=== PATIENT | female | born 1985 | race Caucasian/White ===

== ENCOUNTER → 2018-08-14 | Outpatient (CLI) | payer OTHER, SELFPAY ==
[2018-03-21 16:43] VITALS: BMI 20.6
[2018-08-14 08:52] LABS: Absolute Lymphocyte Count 1.14 X10^3/ul (0.83-4.51); Absolute Neutrophil Count 1.4 X10^3/uL (2.0-7.7); Basophil# 0.03 X10^3/uL; Eosinophils% 3.4 % (0-5); Hematocrit 34.8 % (37-47); Hemoglobin 11.6 g/dl (12.0-15.0); Lymphocyte # 1.14 X10^3/ul (4.0); Lymphocyte % 39.2 % (19-41); Mean Corp Hgb Conc 33.3 g/gl (32-36); Mean Corpuscular Hgb 32.9 pg (27.0-32.0); Mean Corpuscular Volume 98.6 fL (81-99); Mean Platelet Vol. 10.3 fl (6.2-12.0); Monocyte# 0.25 X10^3/uL; Monocyte% 8.6 % (0-10); Neutrophil # 1.39 X10^3/uL (2.7-7.7); Neutrophil % 47.8 % (47-70); POSITIVE COUNT NO; POSITIVE DIFFERENTIAL NO; POSITIVE MORPHOLOGY NO; Platelet Count 337 K/mm3 (150-450); RBC Distribution Width CV 12.4 % (11.6-14.6); RBC Distribution Width SD 44.4 fl (35.1-43.9); Red Blood Count 3.53 M/mm3 (4.2-5.4); White Blood Count 2.9 K/mm3 (4.4-11.0)
[2018-08-14 09:08] LABS: Erythrocyte Sedimentation Rate 3 mm/hr (0-20)
[2018-08-14 09:14] LABS: International Normalized Ratio 1.1; Prothrombin Time (Protime)PT. 13.5 SECONDS (11.7-14.9)
[2018-08-14 09:15] LABS: Vitamin B12 449 pg/mL (211-911); Vitamin D,25 Hydroxy 10.8 ng/mL (29.95-100.01)
[2018-08-14 09:20] LABS: Partial Thromboplast Time 27.8 Seconds (24.1-36.2)
[2018-08-14 09:22] LABS: ALB/GLOB Ratio 1.2 RATIO (0.9-2.4); AST(SGOT) 13 U/L (15-37); Alanine Aminotransfer ALT/SGPT 23 U/L (13-56); Albumin, Serum 4.2 g/dL (3.2-5.0); Alkaline Phosphatase 66 U/L (45-117); Anion Gap 6 (5-15); BUN 14 mg/dL (7-18); BUN/Creat Ratio 14.8 RATIO (10-20); CPK Total, Creatine Kinase 82 U/L (26-192); Calcium,Total 8.9 mg/dL (8.5-10.1); Chloride 107 mmol/L (98-107); Creatinine, Serum 0.95 mg/dL (0.55-1.02); EST Glomerular Filtration Rate 73 mL/min (>60); Est Glom Filt Rate - Afr Amer 88 mL/min (>60); Ferritin 6 ng/mL (8-252); Globulin 3.5 g/dL (2.2-4.2); Glucose 76 mg/dL (74-106); Iron 51 ug/dL (50-170); Iron Binding Capacity,Total 367 ug/dL (250-450); Potassium 3.6 mmol/L (3.5-5.1); Protein, Total 7.7 g/dL (6.4-8.2); Rheumatoid Factor < 10.0 IU/mL (<15); Sodium Level 141 mmol/L (136-145); T4 Free Direct 1.14 ng/dL (0.76-1.46); Thyroid Stim Hormone (TSH) 2.93 uIU/mL (0.358-3.74)
[2018-08-16 12:47] LABS: ANTINUCLEAR ANTIBODIES DIRECT Negative (Negative)
== END | disposition home or self-care (01) ==
LOC: LAB 08:01
DX: M91.0 Juvenile osteochondrosis of pelvis (principal); M25.50 Pain in unspecified joint; R23.8 Other skin changes; R21 Rash and other nonspecific skin eruption; M62.81 Muscle weakness (generalized)
CPT/HCPCS: 36415; 80053; 82306; 82550; 82607; 82728; 83540; 83550; 84439; 84443; 85025; 85610; 85652; 85730; 86038; 86225; 86235; 86431

== ENCOUNTER → 2018-10-08 | Outpatient (CLI) | payer OTHER, SELFPAY ==
[2018-10-08 13:11] VITALS: BMI 20.6
--- NOTE | 2018-10-08 13:24 | RAD_ITS ---
STUDY: X-RAY - RIGHT ELBOW REASON FOR EXAM: Female, 33 years old. Follow-up injury TECHNIQUE: 3 view(s) of the elbow. COMPARISON: None. FINDINGS: Normal visualized humerus, radius and ulna. Normal radiocapitellar and ulnotrochlear articulations. There is a punctate well-corticated calcific density on the medial side of the medial epicondyle which may represent prior injury. The soft tissue structures are unremarkable. RAD/Elbow min 3 Views IMPRESSION: No evidence of an acute fracture. Subtle punctate calcification at the level of the medial epicondyle which may represent prior injury. No visualized joint effusion visualized acute fracture. Electronically Signed: Margaret Dumont MD at 14:16 EDT Tel , Service support ,
== END | disposition home or self-care (01) ==
LOC: HPRAD 13:23
PROVIDERS: Referring Provider Orthopaedic Surgery; Visit Provider Orthopaedic Surgery
DX: M25.521 Pain in right elbow (principal)
CPT/HCPCS: 73080

== ENCOUNTER 2019-01-02 07:15 | Outpatient (RCR) | payer OTHER, SELFPAY ==
[2018-10-08 13:11] VITALS: BMI 20.6
--- NOTE | 2018-10-22 12:52 | HP.OTEVAL ---
Patient's Visit Information CATHY BECERRIL is a 33 year old F, referred to Occupational Therapy by Dorina Duval DO, with a diagnosis of right elbow pain. Date of Evaluation: 10/21/18 Occupational Therapist: Casi Jon, NICKI/Albin, CHT - Subjective Subjective: This 33 year old female was seen for initial OT eval with dx of right elbow pain ulnar neve contusion. Pt right handed hx of ulnar nerve transposition in 2016. was doing fine when son ran into her elbow with his head october 05 2018. she had pain and numb/tingling since and when she rubs against something it causes pain. Triggers general elbow pain from the elbow up the tricep. Pt is feeling limited with her daily work tasks, more arm fatigue and caring for her twin boys. pt states she has started to use icey/hot and this does help decrease pain so she can sleep. order calls for desensitization and reduction of elbow pain - Pain right elbow 2 Pain Intensity Range: 0, 5 - Objective Objective/Observation: pt very tender over voalr foream distial to elbow crease. - ROM ROM Comments: pt demo full ROM for right UE - Strength Trucking Manager: elbow bent right 50# left 55 elbow straight right 40# left 55# Lateral Pinch: right 12# left 12# Tripod Pinch: right 12# left 15# Strength Comments: painful with straight elbow - Sensation Sensation Comments: with bumping her inner elbow she gets tingling/down to her fingers - Quick DASH-Disab of Arm,Shoulder& Hand Quick DASH Score: 23.3325 - Goals Goal:: pt will report no pain greater than 1/10 with use of right UE with ADLs and IADLs by D/C. pt will not report pain with palpation at tricep/medial or lateral aspects of elbow by d/c Goal:: pt will demo the ability to tolerate touch to her right forearm to be able to interact/play and care for her twin toddlers. - Rehabilitation General Assessment: pt demo with hypersensitive ulnar nerve distribution to volar forearm. pt demo with paiful compensation vice president strength and fatigue with use that limits her ind. with ADLs and IADLS. pt would benefit from skilled OT services 2x week for 4 weeks to return pt to [facility]. Today pt was ed. on ulnar nuerve glide, ice and a elbow pad was provided to decrease her from hitting her elbow. pt demo understanding and agree to POC. Rehabilitation Potential: Good - Anticipated Interventions Anticipated Interventions: Desensitization, Modalities, Orthoses, Joint Protection/Energy Conservation, Ergonomic Education, Home Program - Visit Plan Frequency: 1-2x /Week Duration: 4 Weeks TEXT: Thank you for the opportunity to evaluate your patient. For Medicare and Medicare HMO plans, please review the plan of care and approve it. It will need to be FAXED BACK to us at [phone] for Medicare purposes. Please let me know if there are questions or concerns regarding this plan of care. Physician Signature: Date:
--- NOTE | 2019-03-05 19:11 | HP.OTDCSUM ---
HP - OT D/C Summary It has been my pleasure to treat CATHY BECERRIL under orders from Dorina Duval DO, for the diagnosis of right elbow pain for a total of 13 visit(s). Please see the following information for a summary of their discharge status. - Overall Improvement % Improvement: 40 - Objective Objective/Function: pt will need to return to to further eval - Goals Patient Goals: Regain Mobility, Regain Strength, Decrease Pain, Improve Fine Motor Skills, Use Hand/Wrist/Arm Normally Again, Decrease Tingling/Numbness Goal:: pt will report no pain greater than 1/10 with use of right UE with ADLs and IADLs by D/C. pt will not report pain with palpation at tricep/medial or lateral aspects of elbow by d/c Goal:: pt will demo the ability to tolerate touch to her right forearm to be able to interact/play and care for her twin toddlers. - Plan Plan: cont POC - D/C Information If there are questions or concerns regarding this patient's occupational therapy, please fell free to call me at [phone]. Thank you for the referral of this patient. Sincerely, Casi Jon, OTR/L, CHT
== END 2019-01-02 19:00 | disposition home or self-care (01) ==
LOC: OT 07:15
PROVIDERS: Referring Provider Orthopaedic Surgery; Visit Provider Orthopaedic Surgery
DX: M25.521 Pain in right elbow (principal); M79.2 Neuralgia and neuritis, unspecified
CPT/HCPCS: 97033; 97035; 97110; 97140; 97166; 97530

== ENCOUNTER → 2019-03-26 06:32 | Outpatient (CLI) | payer OTHER, SELFPAY ==
[2019-03-11 13:42] VITALS: BMI 20.6
--- NOTE | 2019-03-26 06:33 | MRI_ITS ---
STUDY: MRI LEFT ELBOW REASON FOR EXAM: Left elbow pain, lateral epicondylitis. TECHNIQUE: Standardized fat and water weighted pulse sequences were obtained in all 3 orthogonal planes. COMPARISON: Radiographs 04/06/2016. FINDINGS: Normal radio-capitellum articulation. Normal radial collateral ligamentous complex. Normal common extensor tendon. Normal ulnotrochlear articulation. Normal ulnar collateral ligamentous complex. Normal common flexor tendon. The cubital tunnel is normal, with a normal ulnar nerve. Normal biceps tendon and distal insertion. Normal lacertus fibrosis. Normal brachialis musculotendinous insertion. Normal triceps tendon and teno-osseous insertion. Normal olecranon process. The visualized distal humerus, proximal radius, and ulna are normal. The visualized muscles of the distal arm and proximal forearm are normal. The soft tissue structures are unremarkable. MRI/Upper Ext Joint Only(Routine) IMPRESSION: Normal MRI of the left elbow without MRI manifestations of lateral epicondylitis. Electronically Signed: Merrick Taylor MD at 8:45 EST Tel , Service support ,
--- NOTE | 2019-03-26 06:33 | MRI_ITS ---
STUDY: MRI RIGHT ELBOW REASON FOR EXAM: Right elbow pain, impingement of right ulnar nerve, prior ulnar nerve transposition. TECHNIQUE: Standardized fat and water weighted pulse sequences were obtained in all 3 orthogonal planes. COMPARISON: Radiograph 10/08/2018 and MRI images 05/16/2016. FINDINGS: Normal radio-capitellum articulation. Normal radial collateral ligamentous complex. Normal common extensor tendon. Normal ulnotrochlear articulation. Normal ulnar collateral ligamentous complex. Normal common flexor tendon. Status post transposition of the ulnar nerve with mild enlargement of the ulnar nerve near the medial epicondyle (T2 axial images 13-15), portions of the ulnar nerve are obscured by postoperative micrometallic artifact. Normal biceps tendon and distal insertion. Normal lacertus fibrosis. Normal brachialis musculotendinous insertion. Normal triceps tendon and teno-osseous insertion. Normal olecranon process. There are anchors in the medial epicondyle. The visualized muscles of the distal arm and proximal forearm are normal. There is postoperative scarring at the posterior ulnar aspect of the elbow. MRI/Upper Ext Joint Only(Routine) IMPRESSION: Status post ulnar nerve transposition with mild enlargement of the ulnar nerve. Electronically Signed: Merrick Taylor MD at 8:46 EST Tel , Service support ,
== END ==
PROVIDERS: Family Provider Counselor Mental Health; PCP Counselor Mental Health; Referring Provider Orthopaedic Surgery; Visit Provider Orthopaedic Surgery
DX: M77.12 Lateral epicondylitis, left elbow (principal); G56.21 Lesion of ulnar nerve, right upper limb
CPT/HCPCS: 73221

== ENCOUNTER → 2019-03-27 14:59 | Outpatient (CLI) | payer OTHER, SELFPAY ==
[2019-03-27 08:17] VITALS: BMI 20.6
[2019-04-02 16:51] LABS: HPV APTIMA, High Risk Negative (Negative)
== END ==
PROVIDERS: Family Provider Counselor Mental Health; PCP Counselor Mental Health; Visit Provider Obstetrics & Gynecology
DX: Z12.4 Encounter for screening for malignant neoplasm of cervix (principal)
CPT/HCPCS: 87624; 88175; G0145

== ENCOUNTER 2019-05-22 13:59 | Outpatient (RCR) | payer OTHER, SELFPAY ==
[2019-05-15 08:21] VITALS: BMI 20.6
--- NOTE | 2019-05-23 08:19 | HP.OTEVAL_ITS ---
Patient's Visit Information CATHY BECERRIL is a 33 year old F, referred to Occupational Therapy by Dr. Dorina Duval DO, with a diagnosis of bilateral lat. epi.. Date of Evaluation: 05/22/19 Occupational Therapist: Casi Jon, OTR/Albin, CHT - Subjective Subjective: This 33 year old female was seen for OT with dx of lat. epi. Pt has been seen in the past by this therapist following a right medial epicondylectomy/debridement with subcutaneous ulnar nerve transpostion August 02, 2016. Today she states she had to return to due to bilateral elbow pain. Pt states she does hit her elbows at times on door arches, wall as she will stand and talk to people. She has changed her work station to increase better sitting position and work station. Pt states she has been seeing chiropractor for her neck pain and shoulders. Pt states she went to Dr. Leary last week of with increased elbow pain. Pt states arms hurt and feel weak when caring for her young twins. Twins are around 30-35#. Dressing them and caring them makes pain in arms/shoulder and neck worse. Pt States resting her arms with elbows bent she gets pain up triceps region. Pt states shooting pain up neck to base of skull. Pt would like to finger out is her neck/shoulders or elbows are the issue and decrease her pain. UB weakness. pain. MRI to bilateral elbows- cortisone shots to elbow did not help. tingling in LF and RF - Pain bilateral elbows 4 neck 7 Pain Intensity Range: 8 - Objective Objective/Observation: pt ambulates with guarded posture of UB/shoulder and neck. shoulders rolled forward and neck in forward flexion-with cues pt sitting with ridged body posture, due to pain in neck radiating down into scapula - ROM ROM Comments: pt demo ROM in BUE is WNL. Neck pain does not limit ROM of shoulder but pt reports painful motion. at rest shoulders hurt. - Strength Forearm: Right/left 4+/5 no pain with resistive testing Wrist: Right resistive wrist extension painful with testing 4-/5 left 4+/5 no pain [place]roudman: right 55# left 55# Lateral Pinch: right 12# left 10# Tripod Pinch: right 12# left 8# Strength Comments: right automat watcher strength October 2018 was 50# left 55#. straight arm automat watcher strength was 40# left 55#. Today straight arm automat watcher strength testing right 65# left 50# - Sensation Sensation Comments: tingling in LF of right hand - Quick DASH-Disab of Arm,Shoulder& Hand Quick DASH Score: 26.6650 - Goals Goal:: Pt will demo BUE ROM WNL with no pain greater than 1/10 throughout plans of motion by d/c Goal:: Pt will report pain no greater than 1/10 with use of affected hand with BADLs and IADLs by d/c. Goal:: pt will demo understanding of computer work station ergonomics, lifting ergonomics to decrease stress/injury on UE structures by dc - Rehabilitation General Assessment: Pt demo with good strength but pain is limiting factor. Pt can resist with MMT but has pain radiating neck and scapula with testing of shoulders/triceps/biceps. Pain at bilateral elbows. pt would benefit from sk illed therapy services 1-2x week for 4 weeks to decrease pain, educate on lift ergo., work ergo., perform isometric strengthening of upper tap/scapula and core to increase posture muscle endurance and strength to perform ADLs, work tasks at [facility]. Rehabilitation Potential: Good - Anticipated Interventions Anticipated Interventions: A/AAROM/PROM, Strengthening, Modalities, Joint Protection/Energy Conservation, Ergonomic Education, ADL Training, Home Program - Visit Plan Frequency: 1-2x /Week Duration: 4 Weeks TEXT: Thank you for the opportunity to evaluate your patient. For Medicare and Medicare HMO plans, please review the plan of care and approve it. It will need to be FAXED BACK to us at [phone] for Medicare purposes. Please let me know if there are questions or concerns regarding this plan of care. Physician Signature: Date:
== END 2019-05-22 19:00 | disposition home or self-care (01) ==
LOC: OT 13:59
PROVIDERS: PCP Counselor Mental Health; Referring Provider Orthopaedic Surgery; Visit Provider Orthopaedic Surgery
DX: M77.12 Lateral epicondylitis, left elbow (principal); M77.11 Lateral epicondylitis, right elbow
CPT/HCPCS: 97166

== ENCOUNTER → 2019-05-30 | Outpatient (CLI) | payer OTHER, SELFPAY ==
[2019-05-15 08:21] VITALS: BMI 20.6
--- NOTE | 2019-05-30 14:25 | RAD_ITS ---
STUDY: X-RAY - CERVICAL SPINE REASON FOR EXAM: Female, 33 years old. PAIN TECHNIQUE: 3 view(s) of the cervical spine were obtained. COMPARISON: None FINDINGS: Normal anterior atlantoaxial articulation. Normal odontoid process. Normal cervical lordosis. Normal vertebral bodies and endplates. Normal disc space heights. Normal visualized intervertebral neuroforamina. The soft tissue structures are unremarkable. RAD/Cerv Spine 2 or 3 Views IMPRESSION: Normal x-ray examination of the visualized cervical spine. Electronically Signed: Jeferson Silver MD at 23:39 EST , Service support ,
== END | disposition home or self-care (01) ==
LOC: RAD 14:21
PROVIDERS: PCP Counselor Mental Health; Referring Provider Chiropractor; Visit Provider Chiropractor
DX: M99.01 Segmental and somatic dysfunction of cervical region (principal)
CPT/HCPCS: 72040

== ENCOUNTER → 2019-09-22 06:35 | Outpatient (CLI) | payer OTHER, SELFPAY ==
[2019-06-16 15:14] VITALS: BMI 20.6
--- NOTE | 2019-09-22 06:48 | MRI_ITS ---
STUDY: MRI CERVICAL SPINE WITHOUT CONTRAST REASON FOR EXAM: Female, 33 years old. bilateral hand numbness X 11 MON TECHNIQUE: Standardized fat and water weighted pulse sequences were obtained in the sagittal and axial planes. COMPARISON: None FINDINGS: Normal foramen magnum and brainstem-cervical cord junction. Normal craniovertebral junction. Normal anterior atlantoaxial articulation. Normal odontoid process. Normal cervical lordosis. Normal vertebral bodies and posterior osseous elements. C2-3: Normal endplates. Normal disc height, signal and morphology. Normal central canal and intervertebral neural foramina. C3-4: Normal endplates. Normal disc height, signal and morphology. Normal central canal and intervertebral neural foramina. C4-5: Normal endplates. Normal disc height, signal and morphology. Normal central canal and intervertebral neural foramina. C5-6: Normal endplates. Normal disc height, signal and morphology. Normal central canal and intervertebral neural foramina. C6-7: Normal endplates. Normal disc height, signal and morphology. Normal central canal and intervertebral neural foramina. C7-T1: Normal endplates. Normal disc height, signal and morphology. Normal central canal and intervertebral neural foramina. Normal cervical cord. MRI/Spine Cervical (Routine) IMPRESSION: Normal unenhanced MR examination of the cervical spine. Electronically Signed: Rocky Benz MD at 8:16 EDT Tel , Service support ,
== END ==
PROVIDERS: PCP Counselor Mental Health; Referring Provider Psychiatry & Neurology Neurology; Visit Provider Psychiatry & Neurology Neurology
DX: G43.709 Chronic migraine without aura, not intractable, without status migrainosus (principal)
CPT/HCPCS: 72141

== ENCOUNTER → 2020-01-06 | Outpatient (CLI) | payer OTHER, SELFPAY ==
[2019-06-16 15:14] VITALS: BMI 20.6
[2020-01-06 14:15] LABS: Hemoglobin A1c 5.3 % (3.8-5.6)
== END | disposition home or self-care (01) ==
PROVIDERS: PCP Counselor Mental Health; Referring Provider Counselor Mental Health; Visit Provider Counselor Mental Health
DX: E16.2 Hypoglycemia, unspecified (principal)
CPT/HCPCS: 36415; 83036

== ENCOUNTER → 2020-04-01 | Outpatient (CLI) | payer OTHER, SELFPAY ==
[2020-04-01 08:19] VITALS: BMI 21.7
[2020-04-06 14:06] LABS: HPV APTIMA, High Risk Negative (Negative)
== END | disposition home or self-care (01) ==
PROVIDERS: PCP Counselor Mental Health; Referring Provider Obstetrics & Gynecology; Visit Provider Obstetrics & Gynecology
DX: Z12.4 Encounter for screening for malignant neoplasm of cervix (principal)
CPT/HCPCS: 87624; 88175; G0145

== ENCOUNTER 2020-09-01 15:00 | Outpatient (RCR) | payer OTHER, SELFPAY ==
[2020-08-12 15:11] VITALS: BMI 20.6
--- NOTE | 2020-08-27 07:26 | HP.OTEVAL_ITS ---
Patient's Visit Information CATHY BECERRIL is a 34 year old F, referred to Occupational Therapy by Dr. Dorina Duval DO, with a diagnosis of Bilateral MP thumb pain. Date of Evaluation: 08/27/20 Occupational Therapist: Casi Jon, SNEHAR/Albin, CHT - Subjective This 34 year old female was seen for OT eval with dx of bilateral MP pain of thumbs- pt states she has had cortisone shot and this did help- but still has pain with daily occupation. - Pain bilateral MP 4 - ROM CMC: right 15 left 15 MP: right 65 left 70 IP: right 85 left 80 ROM Comments: pt demo MP ulnar deviation by 15*. and MP mobility with resistive pinch - Strength Computer Aided Drafter: right 55 left 50 Lateral Pinch: right 12# left 12# Tripod Pinch: righ 10# left 8# Strength Comments: pt demo with thumb instability with resisitve pinch - Sensation Sensation Comments: denies - Quick DASH-Disab of Arm,Shoulder& Hand Quick DASH Score: 25.0000 - Goals Goal:: pt will demo the ability to pinch 12# with no demo thumb instability or MP hyper ext indicating increase joint stability by d/c Goal:: pt will report no pain greater than 1/10 with use of bilateral thumbs with ADls and IADls by d/c Goal:: pt will demo a increase understanding of thumb posturing with grasp to avoid stress to MP joints with grasping med. and large size objects by d/c. pt will demo understanding of supportive brace with heavy tasks to decrease joint stress by d/c. pt will demo understanding of thumb stabilization ex. to increase stability to joints with daily tasks by d/c - Rehabilitation General Assessment: pt demo with hyper mobility and MP instability increasing stress and pain of bilateral thumbs with ADLs and IADLs. pt would benefit from skilled OT services 1-2 x week for 4 weeks to decrease pain and increase thumb stability. Rehabilitation Potential: Good - Anticipated Interventions Strengthening, Modalities, Orthoses, Joint Protection/Energy Conservation, Ergonomic Education, Fine Motor Coord/Oh - Visit Plan Frequency: 1-2x /Week Duration: 4 Weeks TEXT: Thank you for the opportunity to evaluate your patient. For Medicare and Medicare HMO plans, please review the plan of care and approve it. It will need to be FAXED BACK to us at [phone] for Medicare purposes. Please let me know if there are questions or concerns regarding this plan of care. Physician Signature: Date:
--- NOTE | 2021-01-26 09:27 | HP.OT.NRP ---
CATHY BECERRIL was seen in my office for initial evaluation on 08/27/20. The following Plan of Care was established for this patient: Initial Frequency: 1-2x /Week Initial Duration: 4 Weeks Plan: give thumb stabilization exercises Anticipated Interventions: Strengthening, Modalities, Orthoses, Joint Protection/Energy Conservation, Ergonomic Education, Fine Motor Coord/Oh This patient was last seen in our office 09/01/20. Pertinent comments regarding their Occupational therapy will appear below: pt as seen 2 OT visits due to thumb pain- therapist jason. custom orthosis to provide support and protection- Due to time lapse in services pt d/c at this time. At this point I will be discontinuing this patient from occupational therapy. I would be happy to see this patient again in the future if found appropriate by the physician. Thank you! Casi Jon, OTR/L, CHT
== END 2020-09-01 19:00 | disposition home or self-care (01) ==
LOC: OT 15:00
PROVIDERS: PCP Counselor Mental Health; Referring Provider Orthopaedic Surgery; Visit Provider Orthopaedic Surgery
DX: M79.645 Pain in left finger(s) (principal); M79.644 Pain in right finger(s)
CPT/HCPCS: 97035; 97166; 97530

== ENCOUNTER → 2021-12-23 | Outpatient (CLI) | payer OTHER, SELFPAY ==
--- NOTE | 2021-12-23 07:12 | MRI_ITS ---
HISTORY: back pain, numbness/tingling in legs TECHNIQUE: Multiplanar and multisequence MR images of the lumbar spine were obtained without intravenous contrast. 120 images. COMPARISON: None. FINDINGS: VERTEBRAE: Vertebral body heights maintained. Mild degenerative endplate changes at L5-S1. ALIGNMENT: No anterior or posterior subluxation. SPINAL CANAL: Normal morphology and position of the conus medullaris at T12-L1. 11 mm Tarlov cyst at the lower S1 level. INTERVERTEBRAL DISCS: T12-L1, L1-2, L2-3, L3-4: No significant posterior disc protrusion, central canal stenosis, or foraminal narrowing. L4-5: Mild central disc protrusion without central canal stenosis or foraminal narrowing. L5-S1: No significant posterior disc protrusion, central canal stenosis, or foraminal narrowing. SOFT TISSUES: No paraspinal fluid collections. MRI/Spine Lumbar (Routine) IMPRESSION: Mild degenerative disc disease of L4-5 without significant spinal canal stenosis or foraminal narrowing. Mild degenerative endplate changes at L5-S1 without significant posterior disc protrusion or canal stenosis. Electronically Signed: Rita Marquis MD at 11:30 EDT ,
== END | disposition home or self-care (01) ==
LOC: MRI 07:12
PROVIDERS: PCP Internal Medicine; Referring Provider Internal Medicine; Visit Provider Internal Medicine
DX: M54.9 Dorsalgia, unspecified (principal); R20.0 Anesthesia of skin; R20.2 Paresthesia of skin
CPT/HCPCS: 72148

== ENCOUNTER 2021-12-28 15:00 | Outpatient (RCR) | payer OTHER, SELFPAY ==
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
--- NOTE | 2022-03-21 16:06 | HP.PT.NRP ---
CATHY BECERRIL was seen in my office for initial evaluation on 09/21/21. The following Plan of Care was established for this patient: Initial Frequency: 2-3x /Week Initial Duration: 3 Weeks Patient/Client Instruction: Educate patient on: Condition, Plan of Care For the Purpose of:: To improve self management Therapeutic Exercise to Include: Strength training, Endurance training, Postural training, Flexibilty training, Dynamic Lumbar Stabilization, Scapular Strength/Stabilization For the Purpose of:: To decrease pain, To increase ROM, To improve muscle performance and motor function This patient was last seen in our office . Pertinent comments regarding their Physical therapy will appear below: Pt was treated for 11 PT visits for R shoulder and LBP through the date of 12/28/21. Pt has not returned through todays date and is discontinued at this time. At this point I will be discontinuing this patient from physical therapy. I would be happy to see this patient again in the future if found appropriate by the physician. Thank you! Tyrone Brunson, PT, ATC Balance/Gait/Functional tests - Balance/Special Test Scores Quick DASH Score: [phone]
== END 2021-12-28 19:00 | disposition home or self-care (01) ==
LOC: PT 15:00
PROVIDERS: PCP Internal Medicine; Referring Provider Internal Medicine; Visit Provider Internal Medicine
DX: M25.511 Pain in right shoulder (principal); M25.551 Pain in right hip; M54.9 Dorsalgia, unspecified
CPT/HCPCS: 97110; 97161

== ENCOUNTER → 2022-02-07 | Outpatient (CLI) | payer OTHER, SELFPAY ==
--- NOTE | 2022-02-07 07:49 | RAD_ITS ---
STUDY: X-RAY - RIGHT SHOULDER REASON FOR EXAM: Female, 36 years old. Pain TECHNIQUE: 4 view(s) of the shoulder. COMPARISON: None. FINDINGS: Normal glenohumeral articulation. Normal acromioclavicular joint. Normal acromion. Normal humeral head and visualized proximal humerus. The soft tissue structures are unremarkable. Normal visualized pulmonary apex. RAD/Shoulder min 2 Views IMPRESSION: Normal x-ray examination of the shoulder. Electronically Signed: Bobby Beach MD at 12:46 EDT ,
== END | disposition home or self-care (01) ==
LOC: RAD 07:48
PROVIDERS: PCP Internal Medicine; Referring Provider Orthopaedic Surgery; Visit Provider Orthopaedic Surgery
DX: M25.511 Pain in right shoulder (principal)
CPT/HCPCS: 73030

== ENCOUNTER → 2022-03-01 | Outpatient (CLI) | payer OTHER, SELFPAY ==
--- NOTE | 2022-03-01 10:02 | RAD_ITS ---
CLINICAL HISTORY: Female, 36 years old. Chronic right hip pain. PROCEDURE: ARTHROGRAM - RIGHT HIP CONSENT: The procedure as well as the benefits and possible complications including infection and bleeding were explained to the patient. Informed consent was obtained. FLUOROSCOPY TIME (if supplied): (41 seconds) minutes/seconds Injection Information: 10 cc of dilute MRI contrast. Number of images obtained: 1 TECHNIQUE: (All elements of maximal sterile barrier technique followed, including US elements as applicable) The patient was in the supine position. The overlying skin was prepped and draped in the usual sterile fashion. Following local anesthetic application and under direct fluoroscopic guidance, a 22-gauge spinal needle was placed into the hip joint. 2 cc of [id number]-300 was injected for confirmation. Following this, 10 cc of dilute MRI contrast was injected. The patient tolerated the procedure well. RAD/Arthrogram Hip w/ MRI IMPRESSION: Successful right hip arthrogram for MRI examination. The patient tolerated the procedure well. Electronically Signed: Bobby Beach MD at 11:39 EST ,
--- NOTE | 2022-03-01 10:03 | MRI_ITS ---
EXAM: MR RIGHT LOWER EXTREMITY WITH INTRAVENOUS CONTRAST, HIP CLINICAL INDICATION: TEAR OF ACETABULAR LABRUM -- RIGHT HIP ARTHROGRAM TECHNIQUE: Multiplanar and multisequence MR images of the right hip with intravenous contrast. This report was created using [employer] technology. CONTRAST: INTRA-ARTICULAR 10CC SOLUTION CONTAINING CLARISCAN COMPARISON: None. FINDINGS: See Impression. MRI/Lower Ext/Jt Only/W Contrast IMPRESSION: 1. Injected contrast is located within the anterior soft tissues, extracapsular (joint is not well distended with gadolinium-based contrast solution limiting this assessment). 2. Questionable labral tear at the anterosuperior aspect suggesting on sagittal image 12 series 6. There is also deep sulcus at the anterior labrum on sagittal image 9 series 6 which may be developmental or could be secondary to tearing. When able, suggest repeating MR arthrography for further clarification. 3. No other significant internal derangement. Electronically Signed: Santino Sotelo MD at 18:46 EST ,
[2022-03-01] MEDS: Gadoterate Meglumine Diluted 10 ML, Iopamidol 5 ML, Lidocaine 1% (20 ml mdv) 5 ML, Epin... INTRAARTIC (10:35)
[2022-03-01] MEDS: Iopamidol 10 ML in Syringe 1 EACH 600 ML INTRAARTIC (10:35)
[2022-03-01] MEDS: Lidocaine 2% (5ml sdv) 5 ML VIAL.MPF INFILT (10:35)
== END | disposition home or self-care (01) ==
LOC: RAD 09:54
PROVIDERS: PCP Internal Medicine; Referring Provider Orthopaedic Surgery; Visit Provider Orthopaedic Surgery
DX: S73.191A Other sprain of right hip, initial encounter (principal)
CPT/HCPCS: 27093; 73722; 77002; Q9967

== ENCOUNTER → 2022-03-27 | Outpatient (CLI) | payer OTHER, SELFPAY ==
--- NOTE | 2022-03-27 08:16 | NURSING ---
verified listed allergy for betadine, talked with the patient herself and she had a reaction to topical betadine scrub, has done well with the injections, had a reaction to the betadine scrub with hives from a recent surgery, contacted pharmacy and updated allergy tab
--- NOTE | 2022-03-27 12:25 | RAD_ITS ---
CLINICAL HISTORY: Female, 36 years old. Chronic right shoulder pain. PROCEDURE: ARTHROGRAM - RIGHT SHOULDER CONSENT: The procedure as well as the benefits and possible complications including infection and bleeding were explained to the patient. Informed consent was obtained. FLUOROSCOPY TIME (if supplied): (51 seconds) minutes/seconds Injection Information: 10 cc of dilute MRI contrast. Number of images obtained: 4 TECHNIQUE: (All elements of maximal sterile barrier technique followed, including US elements as applicable) The patient was in the supine position. The overlying skin was prepped and draped in usual sterile fashion. Following local anesthetic application and under direct fluoroscopic guidance, a 22-gauge spinal needle was placed into the shoulder joint. 2 cc of ISOVUE-300 was injected for confirmation. Following this, 10 cc of dilute MRI contrast was injected. The patient tolerated the procedure well. RAD/Arthrogram Shoulder w/ MRI IMPRESSION: Successful right shoulder arthrogram for MRI examination. Electronically Signed: Bobby Becah MD at 8:23 EST ,
--- NOTE | 2022-03-27 12:36 | MRI_ITS ---
EXAM: MR RIGHT UPPER EXTREMITY WITH INTRAVENOUS CONTRAST, SHOULDER CLINICAL INDICATION: MR RT SHOULDER ARTHROGRAM,SLAP TEAR TECHNIQUE: Multiplanar and multisequence MR images of the right shoulder with intravenous contrast. This report was created using [employer] technology. CONTRAST: intra articular 10ml arthrogram solution COMPARISON: None. FINDINGS: TENDONS: SUPRASPINATUS: Unremarkable. Intact. INFRASPINATUS: Unremarkable. Intact. SUBSCAPULARIS: Unremarkable. Intact. TERES MINOR: Unremarkable. Intact. BICEPS BRACHII, LONG HEAD: Intact long head biceps tendon which is normal in position. LIGAMENTS: GLENOHUMERAL: Intact glenohumeral ligaments. Intact glenohumeral joint capsule. CORACOACROMIAL: Type II acromion with curved undersurface. No coracoacromial ligament thickening or subacromial enthesophyte. No os acromiale. MUSCLES: Unremarkable. No rotator cuff muscle atrophy. FLUID: No evidence for bursitis. No joint effusion. No subacromial-subdeltoid space bursal fluid. CARTILAGE: No focal chondral defects. GLENOID LABRUM: No labral tearing. BONES/JOINTS: Adequate glenohumeral joint distention with injected contrast solution. Intact rotator cuff. A few tiny benign cysts of the humeral head posterolaterally. No other bone marrow signal alterations. Mild to moderate hypertrophic degenerative changes of the acromioclavicular joint with mild mass effect on the underlying soft tissues. No fracture. OTHER SOFT TISSUES: Unremarkable. No rotator interval edema. OTHER FINDINGS: No intra-articular ossific bodies. MRI/Upper Ext Jt Only W/Contrast IMPRESSION: 1. No labral tearing. 2. Intact long head of the biceps tendon. 3. No rotator cuff tearing or evidence for bursitis. Electronically Signed: Santino Sotelo MD at 4:11 EST ,
[2022-03-27] MEDS: Lidocaine 2% (5ml sdv) 5 ML VIAL.MPF INFILT (12:45)
[2022-03-27] MEDS: Gadoterate Meglumine Diluted 10 ML, Iopamidol 5 ML, Lidocaine 1% (20 ml mdv) 5 ML, Epin... INTRAARTIC (13:50)
== END | disposition home or self-care (01) ==
LOC: RAD 12:18
PROVIDERS: PCP Internal Medicine; Referring Provider Orthopaedic Surgery; Visit Provider Orthopaedic Surgery
DX: S43.431A Superior glenoid labrum lesion of right shoulder, initial encounter (principal); M25.511 Pain in right shoulder; G89.29 Other chronic pain
CPT/HCPCS: 23350; 73222; 77002; Q9967

== ENCOUNTER → 2023-01-24 | Outpatient (CLI) | payer OTHER, SELFPAY ==
[2023-01-24 12:22] LABS: Platelet Count 311 K/mm3 (150-450); RET-HE 34.9 pg (30-35); Reticulocyte Count 0.85 % (0.5-1.5)
[2023-01-24 12:57] LABS: Vitamin D,25 Hydroxy 25.8 ng/mL
[2023-01-24 13:18] LABS: Vitamin B12 428 pg/mL (211-911)
[2023-01-28 11:07] LABS: Methylmalonic Acid Bld 105 nmol/L (0-378)
== END | disposition home or self-care (01) ==
LOC: BIMLAB 09:14
PROVIDERS: PCP Internal Medicine; Visit Provider Internal Medicine
DX: D53.9 Nutritional anemia, unspecified (principal); E55.9 Vitamin D deficiency, unspecified
CPT/HCPCS: 36415; 82306; 82607; 82746; 83921; 85045

== ENCOUNTER 2023-02-09 08:48 | Outpatient (RCR) | payer OTHER, SELFPAY ==
[2023-02-09 09:17] LABS: Absolute Lymphocyte Count 1.49 X10^3/uL (0.83-4.51); Basophil# 0.05 X10^3/uL; Basophil% 1.2 % (0-1); Eosinophil# 0.17 X10^3/uL; Eosinophils% 4.2 % (0-5); Hematocrit 36.6 % (37-47); Hemoglobin 12.1 g/dL (12.0-15.0); Lymphocyte # 1.49 X10^3/ul (0.83-4.51); Lymphocyte % 37.1 % (19-41); Mean Corp Hgb Conc 33.1 g/dL (32-36); Mean Corpuscular Volume 102.8 fL (81-99); Mean Platelet Vol. 10.9 fl (6.2-12.0); Monocyte# 0.32 X10^3/uL; NRBC Flagged by Analyzer 0 % (0-5); Neutrophil # 1.98 X10^3/uL (2.7-7.7); Neutrophil % 49.3 % (47-70); Platelet Count 286 K/mm3 (150-450); RBC Distribution Width CV 12.3 % (11.6-14.6); RBC Distribution Width SD 46.5 fl (35.1-43.9); Red Blood Count 3.56 M/mm3 (4.2-5.4); Reticulocyte Count 0.75 % (0.5-1.5)
[2023-02-09 09:27] LABS: Erythrocyte Sedimentation Rate 2 mm/hr (0-30)
[2023-02-09 09:54] LABS: Vitamin B12 387 pg/mL (211-911)
[2023-02-09 09:59] LABS: ALB/GLOB Ratio 1.1 RATIO (0.9-2.4); AST(SGOT) 7 U/L (15-37); Alanine Aminotransfer ALT/SGPT 18 U/L (13-56); Albumin, Serum 3.9 g/dL (3.2-5.0); Alkaline Phosphatase 58 U/L (45-117); Anion Gap 5 (5-15); BUN 15 mg/dL (7-18); BUN/Creat Ratio 16.6 RATIO (10-20); Calcium,Total 8.9 mg/dL (8.5-10.1); Chloride 107 mmol/L (98-107); EST Glomerular Filtration Rate 75 mL/min (>60); Est Glom Filt Rate - Afr Amer 91 mL/min (>60); Ferritin 7 ng/mL (8-252); Globulin 3.5 g/dL (2.2-4.2); Glucose 89 mg/dL (74-106); Iron 143 ug/dL (50-170); Iron Binding Capacity,Total 382 ug/dL (250-450); LDH 145 U/L (84-246); Magnesium 2.2 mg/dL (1.6-2.6); PERCENT IRON SATURATION 37.4 % (15.0-55.0); Phosphorus 3.3 mg/dL (2.5-4.9); Potassium 3.8 mmol/L (3.5-5.1); Protein, Total 7.4 g/dL (6.4-8.2); Sodium Level 138 mmol/L (136-145); Thyroid Stim Hormone (TSH) 4.06 uIU/mL (0.358-3.74); Uric Acid 3.7 mg/dL (2.6-6.0)
[2023-02-09 10:03] LABS: CRP < 2.90 mg/L (0.0-3.0); Free T3 2.5 pg/mL (2.18-3.98)
[2023-02-12 11:08] LABS: ANTINUCLEAR ANTIBODIES DIRECT Positive (Negative)
[2023-02-12 17:07] LABS: Erythropoietin 17.2 mIU/mL (2.6-18.5)
== END 2023-02-13 23:59 ==
LOC: PAVLAB 08:48
PROVIDERS: PCP Internal Medicine; Referring Provider Internal Medicine Medical Oncology; Visit Provider Internal Medicine Medical Oncology
DX: D53.9 Nutritional anemia, unspecified (principal)
CPT/HCPCS: 36415; 80053; 82607; 82668; 82728; 82746; 83540; 83550; 83615; 83735; 84100; 84439; 84443; 84481; 84550; 85025; 85045; 85652; 86038; 86140

== ENCOUNTER → 2023-10-09 | Outpatient (CLI) | payer OTHER, SELFPAY ==
--- NOTE | 2023-10-09 14:12 | BI_ITS ---
MAMMOGRAPHY - BILATERAL SCREENING REASON FOR EXAM: Female, 38 years old. Routine annual screening examination. PERTINENT HISTORY: Mother with breast cancer. TECHNIQUE: Digital bilateral breast rocael (3D mammographic acquisition) in the CC and MLO projections. 2-D mediolateral oblique (MLO) and craniocaudad (CC) views of both breasts were obtained. CAD: Full Field Digital Mammography with Computer Added Detection was performed. COMPARISON: None. Baseline examination. FINDINGS: Breast Composition: The breasts are extremely dense, which lowers the sensitivity of mammography. There are no dominant masses or suspicious calcifications. No other significant abnormalities are identified. BI/SCRN MAMM (CAD)W/ROCAEL BILAT IMPRESSION: Negative screening mammogram. Yearly followup mammogram recommended. (A) ASSESSMENT CATEGORY: BIRADS Category 1: Negative. A letter regarding these results will be sent to the patient by the facility within 30 days. Approximately 10% of breast cancers are not detected by mammography. A normal mammogram should not delay biopsy of a clinically suspicious abnormality. [id number] Electronically Signed: Bobby Beach MD at 15:06 EDT ,
== END | disposition home or self-care (01) ==
LOC: OPBI 14:12
PROVIDERS: PCP Internal Medicine; Referring Provider Nurse Practitioner Family; Visit Provider Nurse Practitioner Family
DX: Z12.31 Encounter for screening mammogram for malignant neoplasm of breast (principal); Z80.3 Family history of malignant neoplasm of breast
CPT/HCPCS: 77063; 77067

== ENCOUNTER → 2024-10-28 | Outpatient (CLI) | payer OTHER, SELFPAY ==
--- NOTE | 2024-10-28 14:45 | BI_ITS ---
EXAM: SCRN MAMM (CAD)W/ROCAEL BILAT DATE: 10/28/2024 CLINICAL HISTORY: F, Age 39 y/o , SCREENING FOR BREAST CANCER Mother with breast cancer. TECHNIQUE: SCRN MAMM (CAD)W/ROCAEL BILAT COMPARISON: Prior exam(s) dated October 09, 2023.. FINDINGS: TISSUE DENSITY: The breasts are extremely dense, which lowers the sensitivity of mammography. Bilateral Breast Mammographic Findings: No significant masses, calcifications or other abnormalities are identified. No suspicious masses, areas of developing architectural distortion, or suspicious calcifications. There has been no significant interval change. BI/SCRN MAMM (CAD)W/ROCAEL BILAT IMPRESSION: Stable examination. OVERALL FINAL ASSESSMENT BI-RADS 1: NEGATIVE. RECOMMENDATION: Routine annual follow-up in 1 Year A letter with findings and recommendations will be mailed to the patient. Reading Location: [id number]
--- NOTE | 2024-10-28 14:45 | BI_ITS ---
EXAM: SCRN MAMM (CAD)W/ROCAEL BILAT DATE: 10/28/2024 CLINICAL HISTORY: F, Age 39 y/o , SCREENING FOR BREAST CANCER Mother with breast cancer. TECHNIQUE: SCRN MAMM (CAD)W/ROCAEL BILAT COMPARISON: Prior exam(s) dated October 09, 2023.. FINDINGS: TISSUE DENSITY: The breasts are extremely dense, which lowers the sensitivity of mammography. Bilateral Breast Mammographic Findings: No significant masses, calcifications or other abnormalities are identified. No suspicious masses, areas of developing architectural distortion, or suspicious calcifications. There has been no significant interval change. BI/SCRN MAMM (CAD)W/ROCAEL BILAT IMPRESSION: Stable examination. OVERALL FINAL ASSESSMENT BI-RADS 1: NEGATIVE. RECOMMENDATION: Routine annual follow-up in 1 Year A letter with findings and recommendations will be mailed to the patient. Reading Location: [id number]
== END | disposition home or self-care (01) ==
LOC: OPBI 14:40
PROVIDERS: PCP Internal Medicine; Referring Provider Nurse Practitioner Family; Visit Provider Nurse Practitioner Family
DX: Z12.31 Encounter for screening mammogram for malignant neoplasm of breast (principal)
CPT/HCPCS: 77063; 77067

== ENCOUNTER → 2024-11-06 | Outpatient (CLI) | payer OTHER, SELFPAY ==
[2024-11-10 23:07] LABS: HPV APTIMA, High Risk Negative (Negative)
== END | disposition home or self-care (01) ==
LOC: LABSPEC 16:15
PROVIDERS: PCP Internal Medicine; Referring Provider Nurse Practitioner Family; Visit Provider Nurse Practitioner Family
DX: Z12.4 Encounter for screening for malignant neoplasm of cervix (principal)
CPT/HCPCS: 87624; 88175; G0145

== ENCOUNTER 2025-01-30 14:00 | Outpatient (RCR) | payer OTHER, SELFPAY | END 2025-01-30 19:00 | disposition home or self-care (01) | LOC: PT 14:00 | PROVIDERS: PCP Internal Medicine; Referring Provider Internal Medicine; Visit Provider Internal Medicine | DX: M54.2 Cervicalgia (principal); G89.29 Other chronic pain; M25.511 Pain in right shoulder; M25.551 Pain in right hip ==